=== PATIENT | male | born 2000 | race Caucasian/White ===

== ENCOUNTER 2020-06-21 09:08 | Outpatient (CLI) | payer BC ==
--- NOTE | 2020-06-21 09:36 | RAD ---
Right ankle 3 views HISTORY: Pain. FINDINGS: Ankle mortise and talar dome are intact. No acute fracture, dislocation, or evidence of elza nt effusion. IMPRESSION : No abnormalities are demonstrated.
--- NOTE | 2020-06-21 09:37 | RAD ---
Right lower leg 2 views HISTORY: Pain. FINDINGS: Tibia and fibula are intact. A very small broad-based osseous excrescence projecting inferi elliott from the proximal tibial metaphysis has the appearance of a small osteochondroma without evidence of complication. IMPRESSION : No acute osseous abnormalities are demonstrated.
== END 2020-06-21 09:09 | disposition home or self-care (01) ==
LOC: BICRAD 09:08
PROVIDERS: ATTEND Family Medicine
DX: M25.571 Pain in right ankle and joints of right foot (principal)